=== PATIENT | female | born 1975 | race Caucasian/White ===

== ENCOUNTER 2018-03-25 10:47 | Emergency (ER) | payer OTHER ==
[~2018-03-25] VITALS: Ht 157.5 cm; Wt 59.0 kg
--- NOTE | ~2018-03-25 | EKG ---
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
[2018-03-25] MEDS ORDERED: NEURONTIN 400400 M1 PO (11:36)
[2018-03-25] MEDS ORDERED: KEPPRA1000 MG PO (11:36)
[2018-03-25] MEDS ORDERED: VISTARIL 25 MG25 M1 PO (11:36)
[2018-03-25] MEDS ORDERED: LEXAPRO20 MG PO (11:37)
[2018-03-25] MEDS ORDERED: QUETIAPINE FUM100 MG PO (11:37)
[2018-03-25] MEDS ORDERED: VALIUM5 MG PO (11:37)
[2018-03-25] MEDS ORDERED: ATIVAN1 MG PO (11:37)
[2018-03-25 11:54] LABS: ABSOLUTE NEUTROPHILS 8.1 thou/uL (1.4-8.2); BASOPHILS 0.5 % (0.0-2.0); EOSINOPHILS 0.7 % (0.0-3.0); HEMATOCRIT 35.4 % (37.0-47.0); HEMOGLOBIN 11.7 gm/dL (12.0-15.0); MCH 26.8 pg (26.0-34.0); MCHC 32.9 g/dL (28.0-37.0); MCV 81.2 fL (80.0-100.0); MONOCYTES 4.4 % (1.0-8.0); PLATELET COUNT 311 thou/uL (150-400); POLYS 70.4 % (36.0-66.0); RBC 4.35 mil/uL (4.20-5.00); RDW 17.9 % (10.5-14.5); WBC 11.5 thou/uL (4.0-11.0)
[2018-03-25 11:56] LABS: CALCIUM 9.3 mg/dL (8.5-10.1); CREATININE 0.7 mg/dL (0.6-1.0); POTASSIUM 3.4 mmol/L (3.5-5.1)
[2018-03-25] MEDS ORDERED: GUAIFEN-CODEINE10 ML PO (12:45)
[2018-03-25] MEDS ORDERED: MOBIC15 MG PO (12:45)
[2018-03-25 13:36] VITALS: BP 120/78
== END 2018-03-25 13:52 | disposition home or self-care (01) ==
LOC: ER 10:47
PROVIDERS: Emergency Medicine
DX: J06.9 Acute upper respiratory infection, unspecified (principal); F17.210 Nicotine dependence, cigarettes, uncomplicated; Z88.0 Allergy status to penicillin; Z88.8 Allergy status to other drugs, medicaments and biological substances

== ENCOUNTER 2018-04-29 09:04 | Emergency (ER) | payer OTHER ==
[~2018-04-29] VITALS: Ht 157.5 cm; Wt 63.5 kg
[~2018-04-29 09:04] MED LIST: ATIVAN1 MG PO; GUAIFEN-CODEINE10 ML PO; KEPPRA1000 MG PO; LEXAPRO20 MG PO; MOBIC15 MG PO; NEURONTIN 400400 M1 PO; QUETIAPINE FUM100 MG PO; VALIUM5 MG PO; VISTARIL 25 MG25 M1 PO
[2018-04-29 09:38] LABS: AMP/METHAMP Negative (Negative); BARBITURATES Negative (Negative); BENZODIAZEPINES Negative (Negative); COCAINE Negative (Negative); METHADONE Negative (Negative); OPIATES Negative (Negative); PCP Negative (Negative)
[2018-04-29] MEDS ORDERED: ATIVAN0.5 MG PO (09:39)
[2018-04-29 10:19] LABS: HEMATOCRIT 34.2 % (37.0-47.0); HEMOGLOBIN 11.4 gm/dL (12.0-15.0); MCH 27.5 pg (26.0-34.0); MCHC 33.5 g/dL (28.0-37.0); MCV 82.1 fL (80.0-100.0); PLATELET COUNT 286 thou/uL (150-400); RBC 4.16 mil/uL (4.20-5.00); RDW 17.9 % (10.5-14.5); WBC 9.7 thou/uL (4.0-11.0)
[2018-04-29 10:28] LABS: CALCIUM 8.8 mg/dL (8.5-10.1); CREATININE 0.6 mg/dL (0.6-1.0); POTASSIUM 3.8 mmol/L (3.5-5.1)
[2018-04-29 12:28] LABS: ABSOLUTE NEUTROPHILS 6.7 thou/uL (1.4-8.2); ANISOCYTOSIS 1+; OVALOCYTES FEW
[2018-04-29] MEDS ORDERED: PHENERGAN25 M1 RECTAL (13:08)
[2018-04-29] MEDS ORDERED: PHENERGAN 25 MG25 MG PO (13:08)
[2018-04-29 13:25] VITALS: BP 111/79
== END 2018-04-29 13:26 | disposition home or self-care (01) ==
LOC: ER 09:04
PROVIDERS: Emergency Medicine
DX: R51 Headache (principal); F17.210 Nicotine dependence, cigarettes, uncomplicated; Z88.0 Allergy status to penicillin; Z88.8 Allergy status to other drugs, medicaments and biological substances; Z90.49 Acquired absence of other specified parts of digestive tract; Z79.899 Other long term (current) drug therapy

== ENCOUNTER 2018-07-02 08:36 | Emergency (ER) | payer OTHER ==
[~2018-07-02] VITALS: Ht 157.5 cm; Wt 59.0 kg
[~2018-07-02 08:36] MED LIST changes: +ATIVAN0.5 MG PO; +PHENERGAN 25 MG25 MG PO; +PHENERGAN25 M1 RECTAL
[2018-07-02 10:15] VITALS: BP 105/58
== END 2018-07-02 11:16 | disposition left against medical advice (07) ==
LOC: ER 08:36
DX: R51 Headache (principal); R11.2 Nausea with vomiting, unspecified; F17.210 Nicotine dependence, cigarettes, uncomplicated; Z88.0 Allergy status to penicillin; Z90.49 Acquired absence of other specified parts of digestive tract; Z88.8 Allergy status to other drugs, medicaments and biological substances